=== PATIENT | female | born 1975 | race Caucasian/White ===

== ENCOUNTER 2023-10-07 10:05 | Day surgery (SDC) | payer OTHER, SELFPAY ==
[2023-10-05 11:29] VITALS: BMI 24.0
--- NOTE | 2023-10-06 14:18 | HO.ANESPROP2 ---
Documented by User: Jess Carvalho NP 10/06/23 14:19 HPI - Anesthesia Eval Consult details Narrative: 48yo F for Colonoscopy [facility] Past Medical History Medical History Spontaneous dissection of coronary artery Migraine Renal calculi Panic attacks Bipolar disorder Ulcerative colitis Surgical History Surgical History History of esophagogastroduodenoscopy (EGD) Hx of cardiac catheterization Hx of cholecystectomy Hx of hysterectomy Hx of excision of mass Hx of ovarian cystectomy H/O colonoscopy Social History Social History Patient Tobacco Use Status: Never used Tobacco Use of substances other than those prescribed or required for medical reasons: No Are you DNR?: No Advance Directives: No Advance Directives Information Provided: Yes Meds Allergies Allergy/AdvReac Type Severity Reaction Status Date / Time amoxicillin Allergy Unknown Unknown Verified 10/07/23 10:13 meperidine [From Demerol] Allergy Unknown Unknown Verified 10/07/23 10:13 Penicillins Allergy Unknown Unknown Verified 10/07/23 10:13 sulfacetamide Allergy Unknown Unknown Verified 10/07/23 10:13 Home Medications Medication Instructions Recorded Confirmed Last Taken Type Ativan 10/05/23 Unknown History Trileptal 10/05/23 Unknown History aspirin 81 mg tablet,delayed 81 mg PO DAILY 10/05/23 10/07/23 10/05/23 History release cholecalciferol (vitamin D3) 25 25 mcg PO DAILY 10/05/23 10/05/23 Unknown History mcg (1,000 unit) capsule (Vitamin D3) escitalopram oxalate 10/05/23 Unknown History hydralazine 10/05/23 Unknown History hydroxyzine HCl 25 mg tablet 25 mg PO TID 10/05/23 10/05/23 Unknown History lorazepam 0.5 mg tablet 0.5 mg PO TID PRN Anxiety 10/05/23 10/05/23 Unknown History mesalamine 400 mg capsule (with 1,200 mg PO TID 10/05/23 10/05/23 Unknown History delayed release tablets inside) multivitamin 1 tab PO DAILY 10/05/23 10/05/23 Unknown History oxcarbazepine 300 mg tablet 300 mg PO BID 10/05/23 10/05/23 Unknown History isosorbide mononitrate 10 mg tablet 10 mg PO BID 10/07/23 10/07/23 Unknown History Exam Height,Weight and Vital Signs: Height 5 ft 8 in Weight 71.668 kg Assessment and Plan Assessment Anesthesia Assessment: Chart Reviewed Documented by User: Albino Anthony MD 10/07/23 11:27 PMFSH Past Medical History Medical History Spontaneous dissection of coronary artery Migraine Renal calculi Panic attacks Bipolar disorder Ulcerative colitis Family History Family history of problems with anesthesia: No Surgical History Surgical History History of esophagogastroduodenoscopy (EGD) Hx of cardiac catheterization Hx of cholecystectomy Hx of hysterectomy Hx of excision of mass Hx of ovarian cystectomy H/O colonoscopy History of Problems with Anesthesia: No Social History Social History Patient Tobacco Use Status: Never used Tobacco Use of substances other than those prescribed or required for medical reasons: No Are you DNR?: No Advance Directives: No Advance Directives Information Provided: Yes Meds Allergies Allergy/AdvReac Type Severity Reaction Status Date / Time amoxicillin Allergy Unknown Unknown Verified 10/07/23 10:13 meperidine [From Demerol] Allergy Unknown Unknown Verified 10/07/23 10:13 Penicillins Allergy Unknown Unknown Verified 10/07/23 10:13 sulfacetamide Allergy Unknown Unknown Verified 10/07/23 10:13 Home Medications Medication Instructions Recorded Confirmed Last Taken Type Ativan 10/05/23 Unknown History Trileptal 10/05/23 Unknown History aspirin 81 mg tablet,delayed 81 mg PO DAILY 10/05/23 10/07/23 10/05/23 History release cholecalciferol (vitamin D3) 25 25 mcg PO DAILY 10/05/23 10/05/23 Unknown History mcg (1,000 unit) capsule (Vitamin D3) escitalopram oxalate 10/05/23 Unknown History hydralazine 10/05/23 Unknown History hydroxyzine HCl 25 mg tablet 25 mg PO TID 10/05/23 10/05/23 Unknown History lorazepam 0.5 mg tablet 0.5 mg PO TID PRN Anxiety 10/05/23 10/05/23 Unknown History mesalamine 400 mg capsule (with 1,200 mg PO TID 10/05/23 10/05/23 Unknown History delayed release tablets inside) multivitamin 1 tab PO DAILY 10/05/23 10/05/23 Unknown History oxcarbazepine 300 mg tablet 300 mg PO BID 10/05/23 10/05/23 Unknown History isosorbide mononitrate 10 mg tablet 10 mg PO BID 10/07/23 10/07/23 Unknown History Exam Airway Mallampati Class: II TM Dist: >3cm Neck ROM: Full Assessment and Plan Assessment Anesthesia Assessment: Anesthesia Plan Discussed Final Anesthetic Review Family History of Problems with Anesthesia: No History of Problems with Anesthesia: No NPO: Yes ASA Class: II Final Preanesthetic Review: No Changes in Pt Med Stat, Meds/Allgs Chart Reviewed, Consent Obtained/Reviewed and Anes Risks/Benef Reviewed Patient Risk: Low Procedure Risk: Low Anesthetic Plan Anesthetic Plan: TIVA Disposition: Standard PACU
[2023-10-07 10:08] VITALS: BMI 23.6
[2023-10-07 10:47] VITALS: BP 118/98; PULSE 82; RESP 16; TEMP 35.9; O2SAT 98
[2023-10-07] MEDS: Lactated Ringers 1,000 ML 100 ML IVCONT (10:52)
--- NOTE | 2023-10-07 11:42 | MHC.SHP ---
Pre-Procedural Eval Section A - 24 Hr Update-Section A only Date of Service: 10/07/23 Section B - Complete if H&P > 30 days Chief Complaint: Ulcerative (chronic) proctitis with rectal bleedin Details of Present Illness: see H&P and changes as noted Relevant Family History (Specify if Yes): No Relevant Social History: None Present Medications: see Short Stay Collaborative assessment Medical History: No relevant PMH History of Previous Operations: No relevant previous surgery Allergies: Allergies Allergy/AdvReac Type Severity Reaction Status Date / Time amoxicillin Allergy Unknown Unknown Verified 10/07/23 10:13 meperidine [From Demerol] Allergy Unknown Unknown Verified 10/07/23 10:13 Penicillins Allergy Unknown Unknown Verified 10/07/23 10:13 sulfacetamide Allergy Unknown Unknown Verified 10/07/23 10:13 Review of Systems Sugical H&P ROS: Negative: Constitution, Cardiovascular, Respiratory, Neurological, Psychiatric, Hem-Onc, Allergic/Immunologic, Gastrointestinal, Genitourinary, Musculoskeletal, Integumentary, Endocrine and Eyes/Ears/Nose/Throat Exam Surgical H&P Exam: Normal: HEENT, Normal: Heart, Normal: Lungs, Normal: Extremities, Normal: Abdomen, Normal: Skin and Normal: Neurological Plan Diagnosis/Plan: Unchanged I have reviewed the history and physical and performed a pertinent physical examination on my patient. No changes have occurred unless specified. Time Spent With Patient Time: Total time managing care of this patient today ____ minutes.
[2023-10-07 12:36] VITALS: BP 112/80; PULSE 67; RESP 16; TEMP 36.1; O2SAT 99
[2023-10-07 12:51] VITALS: BP 123/83; PULSE 64; RESP 16; O2SAT 100
--- NOTE | 2023-10-07 13:06 | OP_ITS ---
DATE OF SERVICE: 10/07/2023 SURGEON: Cecil Spencer MD INDICATIONS: Ulcerative proctitis. PREOPERATIVE DIAGNOSIS: POSTOPERATIVE DIAGNOSIS: PROCEDURE PERFORMED: Colonoscopy to the terminal ileum with biopsy and snare polypectomy. ESTIMATED BLOOD LOSS: COMPLICATIONS: ANESTHESIA: Monitored anesthesia care. ASSISTANTS: SPECIMENS: DESCRIPTION OF PROCEDURE: A history and physical performed. The risks and benefits of the procedure were explained to the patient. Informed consent was obtained. The patient was placed in left lateral decubitus position. A digital rectal exam was performed and was found to be normal. The Olympus pediatric video colonoscope was introduced into the rectum and advanced to the cecum. The cecum was identified by transillumination, palpation, and identification of ileocecal valve. Examination was performed. The scope was removed. She tolerated the procedure well and was taken to recovery area in stable condition. FINDINGS: The terminal ileum was normal. This was biopsied. In the cecum was an 8 mm polyp removed with a hot snare suggestive of a lymphoid polyp. This was recovered via suction. Biopsies were taken throughout the colon. There was no evidence of active colitis endoscopically. The sigmoid was somewhat tortuous. The quality of the prep was good. Retroflexed examination showed some internal hemorrhoids. IMPRESSION: 1. Ulcerative proctitis. 2. Colon polyp. RECOMMENDATION: Follow up the biopsy results. MD LUISA Ritchie/MARIA C / [id number]
== END 2023-10-07 13:30 | disposition home or self-care (01) ==
PROVIDERS: PCP Physician Assistant; Visit Provider Internal Medicine Gastroenterology
PROC: 0DJD8ZZ Inspection of Lower Intestinal Tract, Via Natural or Artificial Opening Endoscopic (ICD-10-PCS; CPT 45378; principal; 2023-10-07 11:30)
DX: K51.211 Ulcerative (chronic) proctitis with rectal bleeding (principal); K63.5 Polyp of colon; K56.2 Volvulus; Z83.719 Family history of colon polyps, unspecified
CPT/HCPCS: 45385; 45380; 88305; J2250; J2405; J2704